=== PATIENT | male | born 1995 | race Two or more races ===

== ENCOUNTER 2020-08-27 06:02 | Outpatient (REF) | payer OTHER, SELFPAY ==
[2020-08-27 06:23] LABS: COVID-19 Test Negative (Negative)
== END 2020-08-27 06:03 | disposition home or self-care (01) ==
LOC: HO.LAB 06:02
PROVIDERS: Visit Provider Internal Medicine
DX: Z20.828 Contact with and (suspected) exposure to other viral communicable diseases (principal)
CPT/HCPCS: 87635

== ENCOUNTER 2020-09-01 06:23 | Outpatient (REF) | payer OTHER, SELFPAY ==
[2020-09-01 06:41] LABS: COVID-19 Test Negative (Negative)
== END 2020-09-01 06:24 | disposition home or self-care (01) ==
LOC: HO.LAB 06:23
PROVIDERS: Visit Provider Internal Medicine
DX: Z20.828 Contact with and (suspected) exposure to other viral communicable diseases (principal)
CPT/HCPCS: 87635

== ENCOUNTER 2021-11-08 17:21 | Outpatient (REF) | payer OTHER, SELFPAY ==
[2021-11-08 17:52] LABS: COVID-19 Test Positive (Negative); IDNOW Serial# 9DD0AD1C
== END 2021-11-08 17:22 | disposition home or self-care (01) ==
LOC: HO.LAB 17:21
PROVIDERS: Visit Provider Internal Medicine
DX: Z20.822 Contact with and (suspected) exposure to COVID-19 (principal)
CPT/HCPCS: 36415; 87635